=== PATIENT | female | born 1975 | race Caucasian/White ===

== ENCOUNTER → 2016-11-06 11:33 | Day surgery (SDC) | payer OTHER ==
[~2016-11-06 11:33] MED LIST: Acetaminophen ADULT LIQ* 650 MG/20.3 ML UDC ONE; Acetaminophen TAB* 325 MG PO PRN; Buffered Lidocaine 1% SYRIN* 3 ML/SYR SYRINGE INTRADERM ONE; Bupivacaine 0.5% SDV PF* 30 ML VIAL ONE; Dexamethasone IV* 4 MG/ML 1 ML (4 MG) ONE; DiMENhydriNATE IV* 50 MG/ML VIAL IV PUSH PRN; Famotidine IV* 10 MG/ML 2 ML (20 mg) ONE; Gelfoam 12-7 ADSORBABLE* SPONGE ONE; Gelfoam Sponge SIZE 100* SPONGE ONE; HYDROmorphone* 1 MG/ML 1 ML SYR ONE; Ketorolac INJ* 30 MG/ML 1 ML VIAL ONE; Lidocaine 2% PF* 5 ML VIAL ONE; Midazolam* 1 MG/ML 2 ML VIAL (2 MG) ONE; Ondansetron INJ* 2 MG/ML VIAL IV PRN; Ondansetron INJ* 2 MG/ML VIAL ONE; PROCHLORPERAZINE INJ 5 MG/ML 2 ML VIAL IV PRN; PROCHLORPERAZINE INJ 5 MG/ML 2 ML VIAL ONE; Propofol* 10 MG/ML 20 ML BTL IV PUSH ONE; ceFAZolin 2 GM PREMIX(*) 2 GM/50 ML BAG IVPB ONE; fentaNYL* 50 MCG/ML 2 ML VIAL (100 MCG VIAL) IV PRN; fentaNYL* 50 MCG/ML 2 ML VIAL (100 MCG VIAL) ONE; oxyCODONE TAB* 5 MG TAB ONE
[2016-11-06 12:42] LABS: Manual Entry Verification HAN0055; UR Preg Internal Control QC Line Present
[2016-11-06 15:36] VITALS: BP 117/75
--- NOTE | 2016-11-06 23:28 | RAD ---
INDICATION: RIGHT ankle fusion. COMPARISON: October 18, 2016 radiographs. TECHNIQUE: 18 seconds fluoroscopy. FINDINGS: Spot images document lack screw traversing the talocrural joint. Linear lucencies from removed internal fixation screws at the medial malleolus. IMPRESSION: Procedural fluoroscopy. CPT II Codes: 6045F
--- NOTE | 2016-11-07 12:40 | OP ---
OPERATIVE REPORT: DATE OF OPERATION: 11/06/16 DATE OF : 77 SURGEON: Lucian Ronquillo MD [employer]LE PRACTITIONER: Monica Lim PA-C PRE-OP DIAGNOSES: Right tibiotalar arthrosis, retained hardware medial malleolus. POST-OP DIAGNOSES: Right tibiotalar arthrosis, retained hardware medial malleolus. OPERATIVE PROCEDURE: Removal of hardware, right medial malleolus, and right tibiotalar fusion with fibular bone graft. DESCRIPTION OF PROCEDURE: The patient was taken to the operating room where initially we made a jabari gitudinal medial incision. The heads of the 4-hole screws were easily palpable and removed with jovita ropriate small fragment screwdriver. This wound was then irrigated and closed with Vicryl and stapl e sutures. Laterally, we made an 8-cm longitudinal incision over the distal fibula curving toward t he sinus tarsi. Full-thickness flap was raised off the anterior aspect of the tibiotalar joint whil e incising the ligaments and the tip of the fibula. Lamina manager data warehousing was used to open the joint. Th e joint was prepared for arthrodesis using a curette and a 5-mm power bur. We harvested some cancel lous bone from the distal fibula through a lateral corticotomy, placed this along the tibiotalar angel luis nt. We then pinned the joint with compression screws in a neutral position. These were 6.5 cannula [place] screws, two from the lateral talus and then one from the lateral tibia. Good fixation and align ment was obtained as well as good fixation. We irrigated both medial and lateral wounds. The later al wound closed with 2-0 Vicryl sutures and teresita and a compression dressing and plaster splint ap plied. [id number]/[facility] #: [id number]
== END | disposition home or self-care (01) ==
LOC: OR 11:33
PROVIDERS: ATTEND Orthopaedic Surgery
DX: M19.171 Post-traumatic osteoarthritis, right ankle and foot (principal); F17.210 Nicotine dependence, cigarettes, uncomplicated; Z79.891 Long term (current) use of opiate analgesic; G89.29 Other chronic pain
CPT/HCPCS: 76000; 81025; 88300; A9270-GY; C1713; C1776; J0690; J0780; J1100; J1170; J1885; J2250; J2405; J2704; J3010

== ENCOUNTER 2018-06-05 10:17 | Emergency (ER) | payer OTHER ==
[2018-06-05 12:03] VITALS: BP 111/66
--- NOTE | 2018-06-05 12:45 | UC ---
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 Pt has had previously - last > 1 year ago. Pt denies fevers, chills. Pt states first on scabbed over, but a second had developed. Pt denies n/v. No other sx Pt states has been applying abbreva, still with discomfort. no APAP. Pt is on Lovenox and vitamins. Pt reports good movement/activity Pt's medications reviewed this visit - History of Current Complaint Chief Complaint: UCSkin Time Seen by Provider: 06/05/18 12:00 Stated Complaint: COLD SORES Hx Obtained From: Patient ?: Yes - 21 wks Pain Intensity: 0 - Allergy/Home Medications Allergies/Adverse Reactions: Allergies Allergy/AdvReac Type Severity Reaction Status Date / Time codeine Allergy Hives Verified 06/05/18 12:36 morphine Allergy Hives Verified 06/05/18 12:36 sulfamethoxazole Allergy Rash Verified 06/05/18 12:36 [From Bactrim] trimethoprim [From Bactrim] Allergy Rash Verified 06/05/18 12:36 Home Medications: Home Medications Cholecalciferol TAB* [Vitamin D TAB*] 1,000 unit PO DAILY 06/05/18 [History Confirmed 06/05/18] Enoxaparin(*) [Lovenox(*)] 120 mg SUBCUT Q24HR 06/05/18 [History Confirmed 06/05] Gallstone Cap Begins W/ 'U' 1 tab PO BID 06/05/18 [History] Review of Systems Constitutional: Negative Skin: Other - upper lip All Other Systems Reviewed And Are Negative: Yes PMH/Surg Hx/FS Hx/Imm Hx Previously Healthy: Yes - clotting disorder - Surgical History Surgical History: Yes Surgery Procedure, Year, and Place: gastric bypass 2007. pins & screws in ankle RIGHT 1998. GALLBLADDER REMOVED 1998. LAP APPENDECTOMY 1999 - Family History Known Family History: Positive: Other - non contributory - Social History Alcohol Use: None Substance Use Type: None Smoking Status (MU): Former Smoker Type: Cigarettes Amount Used/How Often: 1 pack daily When Did the Patient Quit Smoking/Using Tobacco: 2015 Physical Exam - Summary Physical Exam Summary: Vital Signs Reviewed: Yes A+Ox3, no distress Eyes: Conjunctiva Clear, PAIGE. EOM intact and full ENT: Hearing grossly normal TM x 2 clear, mmoist, uvula midline, no exudate, no erythema Neck: Positive: Supple Respiratory: Positive: No respiratory distress, No accessory muscle use + CTA throughout no w/r Cardiovascular: RRR nl s1, s2 no m/r CBT <2 sec abd soft + BS nt/nd no guarding, no distension Musculoskeletal Exam: MIRELES x 4 without difficulty Strength Intact, ROM Intact Neurological: Positive: Alert, + sensation throughout Psychological: Positive: Normal Response To Family Skin: Positive: no rash, no ecchymosis right upper lip - pt with scabbed, dry lesion. 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 Pt wtih new developing lesion upper midline - appears simiarl. no fluctuance. no concern for cellulitis. mild discomfort. Pt is . spoke with pharmacist. Will rx valtrex - reommendpt speak to high market risk analyst at [facility] before starting - pt and SO agreement with plan - will call upon d.x. lidocaine and APAP prn. Pt comfortable with plan - Diagnoses Provider Diagnoses: lip lesion Discharge - Sign-Out/Discharge Documenting (check all that apply): Patient Departure All imaging exams completed and their final reports reviewed: No Studies - Discharge Plan Condition: Stable Disposition: HOME Prescriptions: Lidocaine 2% VISCOUS* 5 ml .SEE ORDER Q4HR #50 ml ValACYclovir (*) [Valtrex 1 GM(*)] 1 gm PO BID #10 tab Patient Education Materials: Canker Sores (ED) Referrals: Skyla Mehta NP [Primary Care Provider] - Additional Instructions: - As discussed at today's visit - Call your pre- specialist in [place] BEFORE starting this medication - okay to take Tylenol every 6 hours for pain - okay to apply numbing ointment to your wounds with a q tip every 6 hours - contact your doctor with questions or cocnerns - Billing Disposition and Condition Condition: STABLE Disposition: Home
== END 2018-06-05 12:53 | disposition home or self-care (01) ==
LOC: UCCORT 10:17
DX: K13.0 Diseases of lips (principal); Z88.5 Allergy status to narcotic agent; Z88.2 Allergy status to sulfonamides; Z87.891 Personal history of nicotine dependence
CPT/HCPCS: 99212; G0463

== ENCOUNTER 2018-08-26 12:09 | Emergency (ER) | payer OTHER ==
--- NOTE | 2018-08-26 13:27 | UC ---
Throat Pain/Nasal Randy HPI - HPI Summary HPI Summary: 42 y/o female presents to the urgent care c/o sinus congestion w/ clear nasal discharge and sinus pain on and off for the past 3 weeks. Pt states for the pst 2 days she has developed yellowish crusting eye discharge w/ redness. This morning when she woke up it was full of crusting discharge. Pt is 33 weeks and is schedule for premature deliver on 09/16/2018 since her liver enzymes have been elevated. Pt denies fever, cough, SOB, chest pain, abdominal pain, GONZALEZ, N/V/D, visual disturbances or eye pain. - History of Current Complaint Stated Complaint: SINUSES, EYE CONCERN Time Seen by Provider: 08/26/18 13:26 Hx Obtained From: Patient Hx Last Menstrual Period: 09/29/15 ?: Yes - 332 weeks Onset/Duration: Gradual Onset, Lasting Weeks - 3 weeks, Still Present, Worse Since - 2 days Severity: Mild Pain Intensity: 0 Pain Scale Used: 0-10 Numeric Cough: None Associated Signs & Symptoms: Positive: Sinus Discomfort, Nasal Discharge - clear. Negative: Fever - Epiglottits Risk Factors Epiglottis Risk Factors: Negative - Allergies/Home Medications Allergies/Adverse Reactions: Allergies Allergy/AdvReac Type Severity Reaction Status Date / Time codeine Allergy Hives Verified 08/26/18 13:32 morphine Allergy Hives Verified 08/26/18 13:32 sulfamethoxazole Allergy Rash Verified 08/26/18 13:32 [From Bactrim] trimethoprim [From Bactrim] Allergy Rash Verified 08/26/18 13:32 Home Medications: Home Medications Pnv No.95/Ferrous Fum/Folic AC [ Tablet] 1 tab PO DAILY 08/26/18 [ History Confirmed 08/26/18] Ursodiol CAP* [Actigall CAP 300 MG*] 500 mg PO BID 08/26/18 [History Confirmed 08/26/18] PMH/Surg Hx/FS Hx/Imm Hx Previously Healthy: Yes - Pt denies PMHX - Surgical History Surgical History: Yes Surgery Procedure, Year, and Place: gastric bypass 2007. pins & screws in ankle RIGHT 1998. GALLBLADDER REMOVED 1998. LAP APPENDECTOMY 1999 - Family History Known Family History: Positive: None - Pt deneis FMHX - Social History Occupation: Unemployed Lives: With Family Alcohol Use: None Substance Use Type: None Smoking Status (MU): Former Smoker Type: Cigarettes Amount Used/How Often: 1 pack daily When Did the Patient Quit Smoking/Using Tobacco: 2016 Review of Systems All Other Systems Reviewed And Are Negative: Yes Constitutional: Positive: Negative Skin: Positive: Negative Eyes: Positive: Drainage - yellowoish in the left eye, Eye Redness - left eye ENT: Positive: Negative, Nasal Discharge - clear, Sinus Congestion, Sinus Pain/ Tenderness Respiratory: Positive: Negative Cardiovascular: Positive: Negative Gastrointestinal: Positive: Negative Genitourinary: Positive: Negative Motor: Positive: Negative Neurovascular: Positive: Negative Musculoskeletal: Positive: Negative Neurological: Positive: Negative Psychological: Positive: Negative Is Patient Immunocompromised?: No Physical Exam - Summary Physical Exam Summary: Vital Signs Reviewed: Yes General: Well appearing, well nourished female in no apparent pain or respiratory distress Eyes: Positive: left Conjunctiva Inflamed, Rt conjunctiva clear - Visual acuity : WNL,Visual gaxiola: full to confrontation. PERRLA, EOMI intact w/out limitation or complaint of pain. eyelashes w/ yellowish crusting and yellowish drainage observed. No ciliary flush. No chemosis, No photophobia. Normal fundoscopic exam; no proptosis, exophthalmos, nystagmus. ENT: Positive: Normal ENT inspection, Hearing grossly normal, Pharynx normal, Nasal congestion, Nasal drainage - clear, TMs normal - B/L external ear canal clear , TM's WNL. Negative: Tonsillar swelling, Tonsillar exudate Neck: Positive: Supple, Nontender, No Lymphadenopathy Respiratory: Positive: Chest nontender, Lungs clear, Normal breath sounds, No respiratory distress Cardiovascular: Positive: RRR, No Murmur, Pulses Normal, Brisk Capillary Refill Abdomen Description: Positive: Nontender, No Organomegaly, Soft. Negative: CVA Tenderness (R), CVA Tenderness (L) Bowel Sounds: Positive: Present Musculoskeletal: Positive: Strength Intact, ROM Intact, No Edema Neurological Exam: Normal Psychological Exam: Normal Skin Exam: Normal Triage Information Reviewed: Yes Throat Pain/Nasal Course/Dx - Course Course Of Treatment: 42 y/o female presents to the urgent care c/o sinus congestion w/ clear nasal discharge and sinus pain on and off for the past 3 weeks. Pt states for the pst 2 days she has developed yellowish crusting eye discharge w/ redness. This morning when she woke up it was full of crusting discharge. Pt is 33 weeks and is schedule for premature deliver on 09/16 since her liver enzymes have been elevated. Pt denies fever, cough, SOB, chest pain, abdominal pain, GONZALEZ, N/V/D, visual disturbances or eye pain. Hx obtained. Pt w/ left eye bacterial conjunctivits and rhinosinusitis on examination. Pt Rx Erythromycin ophthalmic oint as directed below. Advised to use saline drops to help clear her sinuses. Advised to encourage hand washing to avoid spread. D/C instructions explained. Pt understood and agreed w/ plan of care. - Differential Dx/Diagnosis Differential Diagnosis/HQI/PQRI: Influenza, Laryngitis, Pharyngitis, Sinusitis, URI Provider Diagnosis: Bacterial conjunctivitis of left eye, Acute rhinosinusitis Discharge - Sign-Out/Discharge Documenting (check all that apply): Patient Departure - D/C home All imaging exams completed and their final reports reviewed: No Studies - Discharge Plan Condition: Stable Disposition: HOME Prescriptions: Erythromycin OPTH OINT* [Erythromycin 0.5% OPTH OINT*] 1 applic LEFT EYE TID #1 ophth.oint Patient Education Materials: Rhinosinusitis (ED), Conjunctivitis (ED) Referrals: Skyla Mehta NP [Primary Care Provider] - 3 Days Additional Instructions: 1-Please apply ophthalmic ointment in your LF eye as directed. encourage hand washing to avoid spread 2- Use saline drops as directed to clear sinuses 3- If you do not improve or if symptoms worsen please f/u with PCP or return to the urgent care for further evaluation and treatment - Billing Disposition and Condition Condition: STABLE Disposition: Home - Attestation Statements Provider Attestation: Per institutional requirements, I have reviewed the chart, however, I was not consulted specifically or made aware of this patient by the midlevel provider. I did not personally evaluate, interact with , or disposition this patient.
[2018-08-26 13:40] VITALS: BP 114/65
== END 2018-08-26 14:10 | disposition home or self-care (01) ==
LOC: UCCORT 12:09
DX: O99.513 Diseases of the respiratory system complicating pregnancy, third trimester (principal); O99.89 Other specified diseases and conditions complicating pregnancy, childbirth and the puerperium; J01.90 Acute sinusitis, unspecified; H10.9 Unspecified conjunctivitis; R74.8 Abnormal levels of other serum enzymes; Z3A.33 33 weeks gestation of pregnancy; Z88.5 Allergy status to narcotic agent; Z88.2 Allergy status to sulfonamides; Z88.1 Allergy status to other antibiotic agents; Z87.891 Personal history of nicotine dependence
CPT/HCPCS: 99212; G0463